=== PATIENT | male | born 1970 | race Caucasian/White ===

== ENCOUNTER 2022-05-08 10:23 | Emergency (ER) | payer SELFPAY ==
[~2022-05-08] VITALS: Ht 170.2 cm; Wt 81.6 kg
[2022-05-08 10:45] VITALS: BP_SYST 121
[2022-05-08] MEDS ORDERED: KETOROLAC TROMETHAMINE 30 MG VIAL IM ONE (12:00)
[2022-05-08] MEDS ORDERED: DIAZEPAM 5 MG TABLET (VALIUM) PO ONE (12:00)
== END 2022-05-08 18:37 | disposition home or self-care (01) ==
LOC: SED 10:23
DX: M54.41 Lumbago with sciatica, right side (principal)
CPT/HCPCS: 99281